=== PATIENT | male | born 1980 | race American Indian/Alaskan Native ===

== ENCOUNTER 2017-08-01 01:38 | Emergency (ER) | payer BC ==
[2017-08-01 02:23] VITALS: BP 155/101
[2017-08-01] MEDS ORDERED: ZOFRAN ODT ONE (02:24)
[2017-08-01] MEDS ORDERED: ZOFRAN ODT PO ONE (02:25)
== END 2017-08-01 03:00 | disposition left against medical advice (07) ==
LOC: ED 01:38
DX: K08.89 Other specified disorders of teeth and supporting structures (principal); Z53.21 Procedure and treatment not carried out due to patient leaving prior to being seen by health care provider
CPT/HCPCS: Q0162